=== PATIENT | male | born 1970 | race Caucasian/White ===

== ENCOUNTER 2021-08-11 13:04 | Emergency (ER) | payer BC, SELFPAY ==
[2021-08-11 13:10] VITALS: BP 143/84; PULSE 97; RESP 16; TEMP 36.8; O2SAT 100
[2021-08-11 13:13] VITALS: BP 143/84; PULSE 97; RESP 16; TEMP 36.8; O2SAT 100
--- NOTE | 2021-08-11 13:16 | ED.URI ---
HPI - URI/Sore Throat General Chief Complaint: Upper Respiratory Infection Stated Complaint: SORE THROAT/FEVER/COUGH Time Seen by Provider: 08/11/21 13:17 Source: patient Mode of arrival: ambulatory Limitations: no limitations History of Present Illness HPI Narrative: Foster is a 51-year-old male patient presenting to the clinic today with complaints of sore throat fever and cough x4 days. He reports he has some yellow nasal discharge and a lot of nasal congestion. He reports fever yesterday of 101.7F. No one else in the family is sick currently. No known exposure to influenza or Covid. MD elicited complaint: sore throat and nasal congestion Related Data Home Medications Medication Instructions Recorded Confirmed levothyroxine 08/11/21 Allergies Allergy/AdvReac Type Severity Reaction Status Date / Time No Known Allergies Allergy Verified 08/11/21 13:13 Review of Systems Review of Systems: Pertinent positives per HPI. Patient denies any chills, rash, headache, visual changes, dizziness, cough, shortness of breath, chest pain, palpitations, nausea, vomiting, diarrhea, constipation, abdominal pain, or any urinary issues. PMFSH Comments At the time of my signature, I reviewed and agree with the nursing past medical, surgical, social, and family history. There is no relevant family history pertinent to the patient complaint. Exam Narrative: General: Well-developed, well nourished, in no apparent distress Head: Normocephalic, atraumatic Eyes: Pupils equally round and reactive to light bilaterally, EOM intact, sclera and conjunctive clear, no discharge, lids normal Ears: TMs intact and dull, ear canals clear, no drainage, grossly hearing normal. Nose: Nares patent, yellow nasal discharge, moderate/severe inflammation to left anterior and posterior turbinates, no sinus tenderness. Mouth: Oral pharynx without lesions or masses, good dentition, MMM. PND Neck: Supple, trachea midline, no enlargement of anterior or posterior cervical nodes, no thyroid masses or goiter palpable. Cardio: Regular rate and rhythm, s1 and s2 normal, no murmur appreciated. Resp: Clear to auscultation bilaterally, no rhonchi, rales, wheezing or rubs Course Course Emergency Course: Portions of this record may have been created with voice recognition software. Level of Care: Express Care Visit Vital Signs Vital signs: Vital Signs Temperature 36.8 C 08/11/21 13:10 Pulse Rate 97 08/11/21 13:10 Respiratory Rate 16 08/11/21 13:10 Blood Pressure 143/84 H 08/11/21 13:10 Pulse Oximetry 100 08/11/21 13:10 Temperature 36.8 C 08/11/21 13:13 Pulse Rate 97 08/11/21 13:13 Respiratory Rate 16 08/11/21 13:13 Blood Pressure 143/84 H 08/11/21 13:13 Pulse Oximetry 100 08/11/21 13:13 Vital signs reviewed MDM - URI/Sore Throat Differential Diagnosis Differential diagnosis: Likely sinusitis, viral infection, influenza and pharyngitis Discharge Plan Discharge Clinical Impression: Upper respiratory infection Qualifiers: URI type: unspecified viral URI Qualified Code(s): J06.9 - Acute upper respiratory infection, unspecified Patient Disposition: Home, Self-Care Condition: Stable Instructions: Antibiotic Form Additional Instructions: Discussed patient's elevated blood pressure at the time of visit and recommend he follow-up with his primary care physician to have this rechecked as he does not currently have a history of hypertension. Take prescription medications only as prescribed-Sudafed 120 mg extended release as directed Increase fluids and stay well hydrated Tylenol/motrin for pain/fever my high blood pressure Flonase and OTC antihistamines as directed Vicks vapor rub to open sinuses Sinus rinses for congestion Cepacol spray, cough drops, throat lozenges, warm tea with honey/lemon, gargle salt water to soothe throat BRAT diet for diarrhea Clear liquids x 24 hours then advance as ashish
== END 2021-08-11 13:35 | disposition home or self-care (01) ==
PROVIDERS: Emergency Provider Nurse Practitioner Family; PCP Family Medicine Sports Medicine
DX: J06.9 Acute upper respiratory infection, unspecified (principal); E03.9 Hypothyroidism, unspecified
CPT/HCPCS: 99213; G0463